=== PATIENT | male | born 2005 | race Two or more races ===

== ENCOUNTER 2024-03-08 21:43 | Emergency (ER) | payer OTHER, SELFPAY ==
--- NOTE | ~2024-03-08 | XR_ITS ---
EXAMINATION: XR HAND, RIGHT CLINICAL INFORMATION: Injury to the right middle finger. COMPARISON: None available. TECHNIQUE: PA, lateral, and oblique views of the right hand. FINDINGS: Subtle nondisplaced fracture along the volar base of the middle phalanx of the third digit. Mild surrounding soft tissue swelling. Otherwise, normal examination. XR/XR hand RT 2V IMPRESSION: Nondisplaced fracture along the volar base of the middle phalanx of the third digit.
[2024-03-08 22:05] VITALS: BP 120/84; PULSE 106; RESP 20; TEMP 37.2; O2SAT 97; BMI 22.6
--- NOTE | 2024-03-08 23:23 | ED.EXTPRO ---
HPI - Extremity Problem General Chief complaint: Extremity Injury, Upper Stated complaint: Fall/Finger inj Time Seen by Provider: 03/08/24 23:16 Source: patient, family (Patient's mother), RN notes reviewed and old records reviewed Mode of arrival: ambulatory Limitations: no limitations History of Present Illness HPI Narrative: 18-year-old male with past medical history significant for cerebral palsy presents for evaluation of right 3rd finger pain. Patient reports he was walking with his crutches when he lost balance and fell forward He tried to use his hand to break his fall He injured his right 3rd finger and now complains of pain, bruising and swelling Denies hitting his head or losing consciousness He has no other complaints or concerns at this time Related Data Home Medications ?Medication ?Instructions ?Recorded ?Confirmed No Known Home Meds 05/14/21 05/14/21 Allergies Allergy/AdvReac Type Severity Reaction Status Date / Time No Known Allergies Allergy Verified 03/08/24 22:09 Review of Systems Constitutional: Constitutional: Denies body ache(s), Denies chills and Denies fever(s) Musculoskeletal: Musculoskeletal: Reports arthralgias and Reports joint swelling PMFSH Past Medical History Medical History (Updated 03/08/24 @ 23:25 by Duke Rubio) Hypothyroidism Cerebral palsy Physical Exam Vital Signs: Vital Signs: Last Vital Signs Temp 98.9 F 03/08/24 22:05 Pulse 106 H 03/08/24 22:05 Resp 20 03/08/24 22:05 BP 120/84 03/08/24 22:05 Pulse Ox 97 03/08/24 22:05 O2 Del Method Room Air 03/08/24 22:05 BMI result Body Mass Index 22.6 Const: General: healthy appearing, comfortable, no acute distress, alert and awake Nutritional Appearance: well nourished Orientation/consciousness: patient oriented x3 HEENT: Head: Yes normocephalic and Yes atraumatic Neck: Neck: Yes full ROM Resp: Effort & Inspection: normal respiratory effort, able to speak in complete sentences and not labored Neuro: General: patient oriented x3 Cranial nerves: Yes Bilaterally intact EOM present Cognition (Neuro): normal cognition Extrem: Other: Patient has mild edema with ecchymosis and tenderness to the right 3rd finger over the PIP joint. The patient has limited range of motion with flexion of the right 3rd finger. No overlying wounds Medical Decision Making Medical Decision Making MDM Narrative: 18-year-old male presents for evaluation of right 3rd finger pain, x-ray shows a small avulsion fracture to the base of the right 3rd middle phalanx. The patient was placed in a finger splint. He was given referral to hand surgery. The patient generally walks with crutches due to his cerebral palsy. He also has a wheelchair at home that he may use while his hand is healing Differential Diagnosis Differential Diagnoses: The differential diagnosis associated with the presentation includes Hand fracture Finger fracture Finger sprain Dislocation Independent Interpretation I performed an independent interpretation of an: Plain X-Ray (Appreciate avulsion fracture of the base of the right 3rd middle phalanx) Radiology Impression Discussion of test interpretation with radiology: I have reviewed the radiologist's reading. Radiologist Impression: IMPRESSION: Nondisplaced fracture along the volar base of the middle phalanx of the third digit. Discharge Plan Discharge Clinical Impression: Fracture of middle phalanx of finger of right hand Patient Disposition: Home, Self-Care Instructions: Finger Fracture (ED) Additional Instructions: You have a small avulsion fracture to the right middle finger Keep the finger splint in place Use ibuprofen/Tylenol for pain Follow-up with hand surgery, Dr. Milady Marie Prescriptions: No Action No Known Home Meds Referrals: Milady Marie MD [Physician] - (Right 3rd finger fracture) Print Language: English
--- OUTSIDE RECORDS SUMMARY | 2024-03-08 23:27 | XMS_ITS | Referral Summary ---
Author Organization 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
--- OUTSIDE RECORDS SUMMARY | 2024-03-08 23:27 | XMS_ITS | Referral Summary ---
Author Organization [facility] Address [address] [place] [phone] Encounter 05/03/23 - 05/03/[address] [address] [facility] [phone] Discharge Disposition: 01 Home (with or w/o IV fusion or DME) Referring Physician: Meliton Joseph DO Allergies, Adverse Reactions, [...]
--- OUTSIDE RECORDS SUMMARY | 2024-03-08 23:27 | XMS_ITS | Referral Summary ---
Author Organization [facility] Address [address] [place] [phone] Care Team Providers Care Shear Scrapman Name Role Phone Sadia Cornell MD Primary Care Physician Encounter FIN Number [id number] Date(s): 05/24/21 - 05/24/[address] [address] [facility] [phone] Discharge Disposition: 01 Home (with or w/o IV fusion or DME) Attending Physician: Marifer Marrufo MD Referring Physician: Lior Jordan MD Allergies, Adverse Reactions, Alerts No Known Allergies Medications No Known Medications Problem List Condition Effective Dates Status Health Status Inform ant Diplegic cerebral palsy(Confirmed) 03 Active Triplegia(Confirmed) 09/05/13 Active Procedures Procedure Date Related Diagnosis Body Site Status Lengthening of gastrocnemius muscle 1 09/23/13 Completed Gastrostomy operation 2 2007 C ompleted 1bialteral rectus to sartorius 2g-tube placed around 1 1/2 yoa and removed around 3 years of age Vital Signs Most recent to oldest [Reference Range]: 1 Height 149 cm (05/24/21 1:31 PM) Height NOT Growth Chart 149 cm (05/24/21 1:31 PM) Converted Height NOT Growth Chart 4.9 ft (05/24/21 1:31 PM) Weight 51.1 kg (05/24/21 1:31 PM) Weight NOT Growth Chart 51.1 kg (05/24/21 1:31 PM) Converted Weight NOT Growth Chart 112.66 lb(s) (05/24/21 1:31 PM) Body Mass Index 23.02 kg/m2 (05/24/21 1:31 PM) Body Mass Index NOT Growth Chart 23 (05/24/21 1:31 PM) Body surface area 1.4543 m2 (05/24/21 1:31 PM) Social History Social History Type Response Smoking Status Never smoker entered on: 12/12/13 Sex Male
--- OUTSIDE RECORDS SUMMARY | 2024-03-08 23:27 | XMS_ITS | Continuity of Care Document ---
Author Name [employer] Organization Interface Problems Problem Status Onset Date Classification Date Reported Comments Source Triplegia Active 09/05/2013 09/16/2023 [facility] Triplegia(<span ID= [id number] >Confirmed</spa n>) Active 09/05/2013 06/09/2021 [facility] Diplegic cerebral palsy Active 2003 09/16/2023 [facility] Diplegic cerebral palsy(<span ID= [id number] >Confirmed</sp an>) Active 2003 06/09/2021 [facility] Medications Medication Details Route Status Patient Instruction s Ordering Provider Order Date Source Allergies, Adverse Reactions, Alerts Substance Category Reaction Severity Reaction type Status Date Reported Comments Source Immunizations Immunization Date Given Site Status Last Updated Comments So urce Results Order Name Results Value Reference Range Date Interpretatio n Comments Source Vital Signs Vital Sign Value Date Comments Source Height NOT Growth Chart 149 cm 05/24/2021 [facility] Converted Height NOT Growth Chart 4.9 [ft_i] 05/24/2021 [facility] ital Weight NOT Growth Chart 51.1 kg 05/24/2021 [facility] Body surface area 1.4543 m2 05/24/2021 [facility] Converted Weight NOT Growth Chart 112.66 [lb_ap] 05/24/2021 [facility] ital Body Mass Index NOT Growth Chart 23 05/24/2021 [facility] ital Height in cms. 149 cm 05/24/2021 [facility] Weight in kgs 51.1 kg 05/24/2021 [facility] Body Mass Index 23.02 kg/m2 05/24/2021 [facility] Encounters Location Location Details Encounter Type Encounter Number Reason For Visit Attending Provider ADM Date DC Date Status Source [facility] Outpatient [id number] Marifer Marrufo MD 05/24 [facility] Meliton Joseph DO 09/14 [facility] Procedures Procedure Code Date Perfomer Comments Source Lengthening of gastrocnemius muscle<sup>1</sup> [id number] 09/23/[address] [facility] Gastrostomy operation<sup>2</sup> [id number] 11/27/2007 g-tube janelle danilo around 1 1/2 yoa and removed around 3 years of age [facility]
--- OUTSIDE RECORDS SUMMARY | 2024-03-08 23:27 | XMS_ITS | Referral Summary ---
Author Organization [facility] Address [address] [place] [phone] Care Team Providers Care Ginner Name Role Phone Sadia Cornell MD Primary Care Physician Encounter 09/14/23 - 09/14/[address] [address] [facility] [phone] Discharge Disposition: 01 Home (with or w/o [...]
--- OUTSIDE RECORDS SUMMARY | 2024-03-08 23:27 | XMS_ITS | Referral Summary ---
Author Organization [facility] Address [address] [place] [phone] Care Team Providers Care Heating Operators Engineer Name Role Phone Sadia Cornell MD Primary Care Physician Encounter FIN Number [id number] Date(s): 05/24/21 - 05/24/[address] [address] [facility] [phone] Discharge Disposition: 01 Home (with or w/o [...]
--- OUTSIDE RECORDS SUMMARY | 2024-03-08 23:27 | XMS_ITS | Referral Summary ---
Author Organization [facility] Address [address] [place] [phone] Encounter 05/03/23 - 05/03/[address] [address] [facility] [phone] Discharge Disposition: 01 Home (with or w/o [...]
--- OUTSIDE RECORDS SUMMARY | 2024-03-08 23:27 | XMS_ITS | Referral Summary ---
Author Organization [facility] Address [address] [place] [phone] Encounter 03/15/23 - 03/15/[address] [address] [facility] [phone] Discharge Disposition: 01 Home (with or w/o [...]
--- OUTSIDE RECORDS SUMMARY | 2024-03-08 23:27 | XMS_ITS | Referral Summary ---
Author Organization [facility] Address [address] [place] [phone] Encounter 03/15/23 - 03/15/[address] [address] [facility] [phone] Discharge Disposition: 01 Home (with or w/o [...]
--- OUTSIDE RECORDS SUMMARY | 2024-03-08 23:27 | XMS_ITS | Referral Summary ---
Author Organization [facility] Address [address] [place] [phone] Encounter 03/15/23 - 03/15/[address] [address] [facility] [[email or web address] [phone] Discharge Disposition: 01 Home (with or w/o [...]
--- OUTSIDE RECORDS SUMMARY | 2024-03-08 23:27 | XMS_ITS | Referral Summary ---
Author Organization [facility] Address [address] [place] [phone] Care Team Providers Care Sewer And Drain Technician Name Role Phone Sadia Cornell MD Primary Care Physician Encounter 09/14/23 - 09/14/[address] [address] [facility] [phone] Discharge Disposition: 01 Home (with or w/o [...]
--- OUTSIDE RECORDS SUMMARY | 2024-03-08 23:27 | XMS_ITS | Referral Summary ---
Author Organization [facility] Address [address] [place] [phone] Care Team Providers Care Edge Drummer Name Role Phone Sadia Cornell MD Primary Care Physician [phone] Encounter FIN Number [id number] Date(s): 05/24/21 - 05/24/[address] [address] [facility] [phone] Discharge Disposition: 01 Home (with or w/o [...]
--- OUTSIDE RECORDS SUMMARY | 2024-03-08 23:27 | XMS_ITS | Referral Summary ---
Author Organization [facility] Address [address] [place] [phone] Care Team Providers Care Machine Edge Bander Name Role Phone Sadia Cornell MD Primary Care Physician Encounter FIN Number [id number] Date(s): 05/24/21 - 05/24/[address] [address] [facility] [phone] Discharge Disposition: 01 Home (with or w/o [...]
[2024-03-08 23:55] VITALS: BP 118/84; PULSE 101; RESP 18; TEMP 37; O2SAT 97
== END 2024-03-08 23:56 | disposition home or self-care (01) ==
PROVIDERS: Emergency Provider Emergency Medicine
DX: S62.652A Nondisplaced fracture of middle phalanx of right middle finger, initial encounter for closed fracture (principal); G80.9 Cerebral palsy, unspecified; W18.30XA Fall on same level, unspecified, initial encounter; Y93.01 Activity, walking, marching and hiking; Y92.9 Unspecified place or not applicable; Y99.9 Unspecified external cause status
CPT/HCPCS: 29130; 73120; 99282; 99283

== ENCOUNTER 2024-03-20 08:35 | Outpatient (AMB) | payer OTHER, SELFPAY ==
[2024-03-20 08:48] VITALS: BMI 22.6
--- NOTE | 2024-03-20 08:48 | A.OFFVIS_ITS ---
Vital Signs 03/20/24 08:48 Height 4 ft 11 in Weight 112 lb BMI 22.6 Intake Visit Reasons: FC- RT hand 3rd digit fracture, DOI 03/08/24 Intake Note: Srinivasa a 18 year old left hand dominant male who presents today for an ER follow up of MF fracture, DOI 03/08/24. Patient reports he was walking with his crutches when he lost balance and fell forward using his hands to break his fall. He presented to [facility] where xrays were taken and placed in a finger splint. Currently he states no pain or discomfort. Hx of cerebral palsy that he generally uses crutches and a wheel chair as needed. Allergies No Known Allergies Allergy (Verified 03/20/24 08:48) HPI HPI FC- RT hand 3rd digit fracture, DOI 03/08/24: Details: 18-year-old left hand dominant male who presents to the office today for an ER follow-up of right middle finger injury, 03/08/24. He reports he was walking with his crutches when he lost balance and fell forward using his hands to break his fall. He was seen at ED where x-rays were performed and he was placed in a finger splint. He currently states he has no pain or discomfort in his finger however he has difficulty to bend his finger. He has a history of cerebral palsy and he generally uses crutches and wheelchair as needed. [facility] Medical History (Updated 03/20/24 @ 09:30 by Linn Lopez PA-C) Hypothyroidism Cerebral palsy Surgical History (Updated 03/20/24 @ 09:08 by LANRE Hayes) History of surgery on lower extremity Social History (Updated 03/20/24 @ 09:09 by LANRE Hayes) Patient Tobacco Use Status: Never used Tobacco Current occupation: left hand dominant Review of Systems Const All systems reviewed & are unremarkable except as noted in HPI and below Physical Exam Vital Signs: BMI result Body Mass Index 22.6 Const General: cooperative, healthy appearing, comfortable, no acute distress, well developed and alert Orientation/consciousness: patient oriented x3 HEENT Head: Yes normal to inspection, Yes normocephalic and Yes atraumatic Eyes General: appearance normal, both eyes and all related structures Resp Effort & Inspection: normal respiratory effort and able to speak in complete sentences Cardio Rate: regular rate Peripheral pulses: Peripheral pulses 2+ throughout GI Palpation (GI): Soft to palpation Skin Lesions: no lesions Rashes: no rashes Neuro General: patient oriented x3 Extrem Other: Right middle finger: Normal to inspection. He has mild discomfort with palpation along the radial side of the PIP joint. No pain with varus or valgus stress testing. No laxity. Full ROM with sensation intact. Office Procedures Fracture Care Fracture Billing Code: Fracture Billing Code Results Reviewed Results Reviewed: X-rays of the right hand obtained in the office today shows an evulsion fragment along the radial side of the PIP joint. Assessment & Plan Assessment & Plan (1) Avulsion fracture of middle phalanx of finger: Code(s): S62.629A - Displaced fracture of middle phalanx of unspecified finger, initial encounter for closed fracture Category: Medical Qualifiers: Encounter type: initial encounter Fracture type: closed Qualified Code(s): S62.629A - Displaced fracture of middle phalanx of unspecified finger, initial encounter for closed fracture Plan Case was discussed with patient and his mother at the visit today. We showed them how to amrita tape the ring finger to middle finger to help stabilize the PIP joint of the finger. I did stress the importance of ROM of hand to prevent stiffness. He will see me back in 3 weeks with new x-rays for reexamination, sooner if he has any questions or concerns. Orders: Orders XR hand RT min 3V Today M79.641 - Pain in right hand Patient Instructions: Scribed for Linn Lopez PA-C, by Nathaniel Shaw medical supervisor, on 03/20/2024 at 9:00 AM EST. ILinn PA-C, have personally reviewed and agree with the information entered by the scribe. Coding Level of Care Code New Pt Level 3 (26781) Diagnoses Closed avulsion fracture of middle phalanx of finger, initial encounter S62.629A Encounter type: initial encounter Fracture type: closed CPT Codes Fracture Care - Fracture Billing Code: Fracture Billing Code ([id number])
== END 2024-03-20 09:25 | disposition home or self-care (01) ==
PROVIDERS: Visit Provider Physician Assistant
DX: S62.624A Displaced fracture of middle phalanx of right ring finger, initial encounter for closed fracture (principal)
CPT/HCPCS: 99203

== ENCOUNTER 2024-03-20 10:10 | Outpatient (REF) | payer OTHER, SELFPAY ==
--- NOTE | ~2024-03-20 | XR_ITS ---
EXAMINATION: XR HAND, RIGHT CLINICAL INFORMATION: Pain in right hand, splint off middle finger. COMPARISON: 03/08/2024. TECHNIQUE: PA, lateral, and oblique views of the right hand. FINDINGS: Bone mineralization is normal. There is a mildly displaced fracture through the volar base of the middle phalanx of the 3rd digit with adjacent soft tissue swelling. Fracture lines are slightly less distinct suggesting some mild interval bridging callus formation. XR/XR hand RT min 3V IMPRESSION: Mildly displaced fracture through the volar base of the middle phalanx of the 3rd digit with adjacent soft tissue swelling. Fracture lines are slightly less distinct suggesting some mild interval bridging callus formation.
== END 2024-03-20 10:11 | disposition home or self-care (01) ==
LOC: HO.HOSX 10:10
PROVIDERS: Visit Provider Physician Assistant
DX: S62.621A Displaced fracture of middle phalanx of left index finger, initial encounter for closed fracture (principal)
CPT/HCPCS: 73130; 99202

== ENCOUNTER 2024-04-10 09:10 | Outpatient (REF) | payer OTHER, SELFPAY ==
--- NOTE | ~2024-04-10 | XR_ITS ---
EXAMINATION: XR HAND, RIGHT CLINICAL INFORMATION: Painful right hand COMPARISON: Prior x-rays of the right hand most recent February 2024 TECHNIQUE: PA, lateral, and oblique views of the right hand. FINDINGS: Minimally displaced fracture along the volar radial aspect of the base of the middle phalanx unchanged. Remaining bones joints and soft tissues are unremarkable. XR/XR hand RT min 3V IMPRESSION: Minimally displaced fracture along the volar radial aspect of the base of the middle phalanx unchanged.
== END 2024-04-10 09:11 | disposition home or self-care (01) ==
LOC: HO.HOSX 09:10
PROVIDERS: Visit Provider Physician Assistant
DX: M79.641 Pain in right hand (principal); S62.622D Displaced fracture of middle phalanx of right middle finger, subsequent encounter for fracture with routine healing; X58.XXXD Exposure to other specified factors, subsequent encounter
CPT/HCPCS: 73130; 99212

== ENCOUNTER 2024-04-10 09:12 | Outpatient (AMB) | payer OTHER, SELFPAY ==
--- NOTE | 2024-04-10 09:24 | A.OFFVIS_ITS ---
Intake Visit Reasons: ov-fu Rt miffle finger RCL sprain w xray Intake Note: Srinivasa a 18 year old left hand dominant male who presents today for a follow up of right hand 3rd digit fracture, DOI 03/08/24. Xrays updated. Patient reports he is doing well, states he has no pain or discomfort. Allergies No Known Allergies Allergy (Verified 04/10/24 09:27) HPI HPI ov-fu Rt miffle finger RCL sprain w xray: Details: 18-year-old left hand dominant male who returns to the office today for a follow-up of right middle finger fracture, 03/08/24. He states he has no pain or discomfort and is doing well overall. He has no concerns today. [facility] Medical History (Updated 03/20/24 @ 09:30 by Linn Lopez PA-C) Hypothyroidism Cerebral palsy Surgical History History of surgery on lower extremity Social History Patient Tobacco Use Status: Never used Tobacco Current occupation: left hand dominant Review of Systems Const All systems reviewed & are unremarkable except as noted in HPI and below Physical Exam Const General: cooperative, healthy appearing, comfortable, no acute distress, well developed and alert Orientation/consciousness: patient oriented x3 HEENT Head: Yes normal to inspection, Yes normocephalic and Yes atraumatic Eyes General: appearance normal, both eyes and all related structures Resp Effort & Inspection: normal respiratory effort and able to speak in complete sentences Cardio Rate: regular rate Peripheral pulses: Peripheral pulses 2+ throughout GI Palpation (GI): Soft to palpation Skin Lesions: no lesions Rashes: no rashes Neuro General: patient oriented x3 Extrem Other: Right middle finger: Normal to inspection. He has no discomfort with palpation along the radial side of the PIP joint. No pain with varus or valgus stress testing. No laxity. Full ROM with sensation intact. Results Reviewed Results Reviewed: X-rays of the right hand obtained in the office today shows an avulsion fragment along the radial side of the PIP joint with interval healing. Assessment & Plan Assessment & Plan (1) Avulsion fracture of middle phalanx of finger: Code(s): S62.629A - Displaced fracture of middle phalanx of unspecified finger, initial encounter for closed fracture Category: Medical Qualifiers: Encounter type: initial encounter Fracture type: closed Qualified Code(s): S62.629A - Displaced fracture of middle phalanx of unspecified finger, initial encounter for closed fracture Plan He will increase activity as tolerated continuing to use caution with any type of contact or impact activities. He will not return to office however if he has any pain or concerns, he will contact the office, otherwise as needed. Orders: Orders XR hand RT min 3V 04/10/24 M79.641 - Pain in right hand Patient Instructions: Scribed for Linn Lopez PA-C, by Nathaniel Shaw medical doctor nuclear medicine, on 04/10/2024 at 9:30 AM EST.? I, Linn Lopez PA-C, have personally reviewed and agree with the information entered by the scribe. Coding Level of Care Code Global (70737) Diagnoses Closed avulsion fracture of middle phalanx of finger, initial encounter S62.629A Encounter type: initial encounter Fracture type: closed
== END 2024-04-10 10:14 | disposition home or self-care (01) ==
PROVIDERS: Visit Provider Physician Assistant
DX: S62.622A Displaced fracture of middle phalanx of right middle finger, initial encounter for closed fracture (principal)
CPT/HCPCS: 99213

== ENCOUNTER 2024-08-15 08:07 | Outpatient (REF) | payer OTHER, SELFPAY ==
[2024-08-15 09:13] LABS: MANUAL DIFF FLAG NO
[2024-08-15 09:23] LABS: Basophils Percent Auto 0.6 % (0-2); Eosinophils Absolute Auto 0.1 X10*3/uL (0.0-0.4); Eosinophils Percent Auto 1.2 % (0-4); Hematocrit 44.4 % (42.0-52.0); Hemoglobin 14.7 g/dl (14.0-18.0); Imm Gran Abs Auto 0.01 X10*3/uL (0.00-0.03); Imm Gran Pct Auto 0.2 % (0.0-0.4); Lymphocytes Absolute Auto 2.1 X10*3/uL (1.2-4.9); Lymphocytes Percent Auto 41.4 % (20-40); Mean Corpuscular HGB Conc 33.1 g/dl (31.0-36.0); Mean Corpuscular Hemoglobin 27.2 pg (27.0-33.0); Mean Corpuscular Volume 82.1 fL (80.0-98.0); Mean Platelet Volume 10.7 fL (9.4-12.4); Monocytes Absolute Auto 0.4 X10*3/uL (0.1-1.2); Monocytes Percent Auto 8.2 % (2-11); Neutrophils Absolute Auto 2.5 x10*3/uL (2.0-8.3); Neutrophils Percent Auto 48.4 % (45-73); Platelet Count 265 X10*3/uL (160-400); Red Blood Count 5.41 X10*6/uL (4.60-5.80); Red Cell Distribution Width 13.7 % (11.0-16.0); White Blood Count 5.2 X10*3/uL (4.8-10.8)
[2024-08-15 10:21] LABS: Alanine Aminotransferase 10 U/L (0-40); Albumin Level 5.1 g/dL (3.5-5.0); Alkaline Phosphatase 63 U/L (39-117); Anion Gap 13 (12-20); Aspartate Amino Transferase 15 U/L (5-37); Bilirubin Total 0.7 mg/dL (0.0-1.0); Blood Urea Nitrogen 7 mg/dL (9-16); Calcium 9.6 mg/dL (8.4-10.2); Carbon Dioxide 29 mmol/L (22-29); Chloride 104 mmol/L (96-108); Estimated Glomerular Filt Rate > 60; Glucose Random 79 mg/dL (60-115); Potassium 3.9 mmol/L (3.3-5.1); Sodium 142 mmol/L (135-145); Total Protein 8.3 g/dL (6.5-8.0)
[2024-08-15 10:43] LABS: Free T4 (Free Thyroxine) 0.97 ng/dL (0.71-1.85); TSH reflex Free T4 1.35 uIU/mL (0.32-4.0)
[2024-08-15 10:49] LABS: Folate 14.2 ng/mL (> or = 4.0); Vitamin B12 316 pg/mL (200-900)
[2024-08-20 15:48] LABS: Vitamin D 25-OH, D2 <4 ng/mL; Vitamin D 25-OH, D3 13 ng/mL; Vitamin D 25-OH, Total 13 ng/mL (30-100)
== END 2024-08-15 08:08 | disposition home or self-care (01) ==
LOC: HO.LAB 08:07
DX: Z00.00 Encounter for general adult medical examination without abnormal findings (principal); G80.9 Cerebral palsy, unspecified
CPT/HCPCS: 36415; 80053; 82306; 82607; 82746; 84439; 84443; 85025; 96127; 99385

== ENCOUNTER 2024-08-15 08:07 | Outpatient (AMB) | payer OTHER, SELFPAY ==
[2024-08-15 08:22] VITALS: BP 98/58; PULSE 113; O2SAT 99; BMI 23.3
--- NOTE | 2024-08-15 08:22 | MHC.PC.OV ---
Vital Signs 08/15/24 08:22 Height 4 ft 11 in Weight 115 lb 8.356 oz BMI 23.3 BP 98/58 L Blood Pressure Location Lt brachial Position Sitting Pulse 113 H Pulse Source Pulse Oximeter Pulse Oximetry (%) 99 Oxygen Delivery Method Room Air Intake Visit Reasons: annual exam / establish care Allergies No Known Allergies Allergy (Verified 08/15/24 08:34) Medication List - Last Reconciled 08/15/24 by Yuli Nguyễn PA-C No Known Home Meds Tobacco use date assessed: 08/15/24 Dental Screening Dental Screen Date: 08/15/24 Did you have a dental visit in the last 12 months?: No Did you have a dental problem in the last 6 months where you did not have access to dental care?: No Was dental information given to patient?: No HPI annual exam / establish care HPI Details 19-year-old male with past medical history of 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 Patient presents today with his mother. He was previously seen by [facility] pediatrics and transferred to [facility] for management of cerebral palsy with triplegia. Patient primarily we will use crutches for short distance and will use wheelchair for long distances. No acute concerns today. [facility] Medical History Hypothyroidism Cerebral palsy Surgical History History of surgery on lower extremity Family History Father No problems noted. Mother No problems noted. Brother No problems noted. Brother No problems noted. Social History Housing: Other (At home with parents) Patient Tobacco Use Status: Never used Tobacco Tobacco use type: Cigarette e-Cigarette/Vaping Use: Never Used Second Hand Smoke Exposure: No service: No Current occupational status: disabled Current occupation: left hand dominant Current occupational exposures/hazards: No Cognitive needs: No Hearing needs: No Vision needs: Yes Questionnaire PHQ-9 Over the last 2 weeks, how often have you been bothered by any of the following problems? 1. Little interest or pleasure in doing things: not at all 2. Feeling down, depressed, or hopeless: not at all 3. Trouble falling or staying asleep, or sleeping too much: not at all 4. Feeling tired or having little energy: not at all 5. Poor appetite or overeating: not at all 6. Feeling bad about yourself - or that you are a failure or have let yourself or your family down: not at all 7. Trouble concentrating on things, such as reading the newspaper or watching television: not at all 8. Moving or speaking so slowly that other people could have noticed. Or the opposite - being so fidgety or restless that you have been moving around a lot more than usual: not at all 9. Thoughts that you would be better off or of hurting yourself in some way: not at all Total score: 0 Depression Screening Interpretation: Negative Depression Screening Done: Yes 29578 - PHQ-9 Billing: Yes Source: Developed by Drs. Lior Mitchell, Sarai Zambrano, Wilver Zavala and colleagues, with an educational josé miguel from [employer]. Thrive Questionnaire Date Thrive assessed: 08/15/24 I am a: Patient What is your living situation today?: I have a steady place to live Within the past 12 months, did the food you bought not last and you didn't have the money to get more?: I choose not to answer this question Within the past 12 months, did you worry whether your food would run out before you got money to buy more?: I choose not to answer this question Do you have trouble paying for medicines?: I choose not to answer this question Do you have trouble getting transportation to medical appointments?: Yes Do you have trouble paying your heating and electricity bill?: I choose not to answer this question Do you have trouble taking care of your child, family member or friend?: No Do you have trouble with day-to-day activities such as bathing, preparing meals, shopping, managing finances, etc.?: No Are you currently unemployed and looking for a job?: Yes Are you interested in more education?: I choose not to answer this question Please select the resources that you would like help with: None Currently or been in a relationship where the following occur: No concerns reported THRIVE Score: 1 AUDIT C Alcohol Use Questionnaire (AUDIT-C) 1. How often do you have a drink containing alcohol?: Never 3. How often do you have six or more drinks on one occasion?: Never Total Score: 0 HAMILTON-7 AMB Questionnaire HAMILTON-7 Date HAMILTON - 7 assessed: 08/15/24 Feeling nervous, anxious, or on edge: 0 = Not at all Not being able to stop or control worryin = Not at all Worrying too much about different things: 0 = Not at all Trouble relaxin = Not at all Being so restless that it is hard to sit still: 0 = Not at all Becoming easily annoyed or irritable: 0 = Not at all Feeling afraid as if something awful might happen: 0 = Not at all Total HAMILTON-7 score (0-4 normal; 5-9 mild; 10-14 moderate; 15-21 severe): 0 Source: Developed by Drs. Lior Mitchell, Sarai Zambrano, Wilver Zavala and colleagues, with an educational josé miguel from [employer]. Review of Systems Const Denies body aches, Denies fatigue, Denies fever(s), Denies frequent falls, Denies headache(s) and Denies weakness Eyes Reports no additional complaints, Denies change in vision and Reports requires corrective lenses ENT Denies dysphagia, Denies dizziness, Denies facial pain, Denies headache(s), Denies nasal congestion and Denies odynophagia Card Denies chest pain, Denies syncope, Denies irregular heart rhythm, Denies leg edema, Denies lightheadedness and Denies dyspnea Resp Denies cough and Denies dyspnea GI Denies constipation, Denies dysphagia, Denies dyspepsia, Denies diarrhea, Denies nausea, Denies odynophagia and Denies vomiting Denies dysuria, Denies urinary frequency, Denies urinary hesitancy and Denies urinary urgency Musc Denies back pain and Denies myalgias Skin/Breast Reports system reviewed and no additional complaints, except as documented Neuro Denies dizziness, Denies syncope, Denies frequent falls, Denies headache(s) and Denies weakness Psych Reports no additional complaints Endo Denies fatigue Physical exam (Primary Care) Vital Signs: Last Vital Signs Pulse 113 H 08/15/24 08:22 BP 98/58 L 08/15/24 08:22 Pulse Ox 99 08/15/24 08:22 Oxygen Delivery Method Room Air 08/15/24 08:22 BMI result Body Mass Index 23.3 Tobacco/Smoking Status: Tobacco use Status Tobacco use date assessed 08/15/24 08/15/24 08:29 Patient Tobacco Use Status Never used Tobacco 08/15/24 08:29 Tobacco use type Cigarette 08/15/24 08:29 e-Cigarette/Vaping Use Never Used 08/15/24 08:29 PHQ-9: PHQ-9 Score PHQ-9: Total score 0 08/15/24 09:02 Depression Screening Interpretation: Negative Thrive Assessment: Date of Thrive Assessment Date Thrive assessed 08/15/24 08/15/24 08:29 Currently or been in a relationship where the following occur: No concerns reported Const General: cooperative, healthy appearing, comfortable and no acute distress Orientation/consciousness: patient oriented x3 HENMT Head: Yes normocephalic Ears: hearing grossly normal bilaterally, external ears normal, TM's normal bilaterally and EAC's normal General nose exam: Normal external nose present Face and sinus: Yes normal facial exam and Yes sinuses nontender Mouth: Normal oral and palatal mucosa present and tongue normal Throat: Yes posterior oropharynx normal Eyes General: appearance normal, both eyes and all related structures Conjunctivae: conjunctivae normal Pupils: Equal, round and reactive pupils present EOM: EOMs intact bilaterally and No Nystagmus present Neck Neck: Yes normal visual inspection, Yes full ROM and Yes no lymphadenopathy Chest Chest palpation & inspection: normal inspection of the chest Resp Effort & Inspection: normal respiratory effort Auscultation: clear to auscultation bilaterally, no crackles, no rales, no rhonchi, no wheezes and breath sounds present Cardio Rate: regular rate Rhythm: regular rhythm Peripheral pulses: radial pulses present and dorsalis pedis present GI Inspection: Yes normal to inspection and No Abdominal wall edema Palpation (GI): Soft to palpation, not firm and nontender Auscultation: normal bowel sounds Rectal Exam - Male: Yes deferred General: Yes no CVA tenderness Back/Spine/Pelvis Back: no CVA tenderness Skin General skin exam: no rashes or lesions noted Neuro General: patient oriented x3 Cranial nerves: Yes Equal, round and reactive pupils present, Yes Midline tongue present, Yes Ability to bilaterally elevate shoulders present and No Nystagmus present Gait exam (Neuro): Assisted gait required Gait assisted method: crutches Extrem General: Yes normal to inspection, Yes full ROM, No no pedal edema and No edema Psych Speech and movement: Normal speech and movement present Affect: normal affect Insight: Good insight present (Psych) Judgement: Good judgement present (Psych) Assessment and Plan Assessment & Plan (1) Cerebral palsy: Comment: s/p muscle nerve transplant 2009-followed by [facility]-has crutches and wheelchair. As of 04/2021 uses crutches almost exclusively. Code(s): G80.9 - Cerebral palsy, unspecified Plan: Regarding mobility he primarily uses crutches for short distances and wheelchair for long distances. Previously followed by [facility] but dismissed due to age. Referral placed for Neurology provider at this time. (2) Annual physical exam: Code(s): Z00.00 - Encounter for general adult medical examination without abnormal findings Plan: Patient is up-to-date on all recommended routine screenings and vaccinations for his age. Updated blood work ordered today and we will follow up in 1 year or sooner if new problems arise. Plan This note was constructed using voice recognition software. While every effort has been made to ensure accuracy and urban renewal manager, still areas may have been included sometimes these areas may affect the content or meeting of the given symptoms. Total time spent caring for the patient today was 30 minutes. This includes time spent before the visit reviewing the chart, time spent during the visit, and time spent after the visit and documentation. Orders: Orders Complete Blood Count Auto Diff Today Z00.00 - Encounter for general adult medical examination without abnormal findings Free T4 (Free Thyroxine) Today Z00.00 - Encounter for general adult medical examination without abnormal findings TSH reflex Free T4 Today Z00.00 - Encounter for general adult medical examination without abnormal findings Comprehensive Met. Panel Today Z00.00 - Encounter for general adult medical examination without abnormal findings Vitamin B12 and Folate Today Z00.00 - Encounter for general adult medical examination without abnormal findings Vitamin D 25-OH (D2 and D3) Today Z00.00 - Encounter for general adult medical examination without abnormal findings Referrals Neurology Referral G80.9 - Cerebral palsy, unspecified Coding Level of Care Code New Pt Prev Care 18-39yr([id number] Diagnoses Cerebral palsy G80.9 Annual physical exam Z00.00
== END 2024-08-15 08:46 | disposition home or self-care (01) ==
DX: G80.9 Cerebral palsy, unspecified (principal); Z00.00 Encounter for general adult medical examination without abnormal findings

== ENCOUNTER 2025-08-22 08:58 | Outpatient (AMB) | payer OTHER, SELFPAY ==
--- NOTE | 2025-08-22 09:01 | A.OFFPC_ITS ---
Vital Signs 08/22/25 09:02 08/22/25 09:21 Height 4 ft 11 in Weight 117 lb 1.047 oz BMI 23.6 BP 110/66 Blood Pressure Location Lt brachial Position Sitting Pulse 121 H 90 Pulse Source Pulse Oximeter Auscultation Temp 97.3 F Temp Source Temporal Artery Scan Pulse Oximetry (%) 96 Oxygen Delivery Method Room Air Intake Visit Reasons: Annual Exam Accompanied by: Mother Allergies No Known Allergies Allergy (Verified 08/22/25 09:14) Medication List - Last Reconciled 08/22/25 by Yuli Nguyễn PA-C cholecalciferol (vitamin D3) (Vitamin D3) 25 mcg PO DAILY Tobacco use date assessed: 08/22/25 Dental Screening Dental Screen Date: 08/22/25 Did you have a dental visit in the last 12 months?: No Did you have a dental problem in the last 6 months where you did not have access to dental care?: No Was dental information given to patient?: Patient has dentist HPI Annual Exam HPI Details 20-year-old male with past medical histo ry of cerebral palsy last seen 07/2024 coming in for annual exam. In review of the notes, patient was seen by Neurology 09/2024 follow up in 1 year. Presenting for an annual wellness visit. Vitamin D deficiency was identified in the previous year's lab results, and supplementation was advised. The patient experienced a finger fracture from a fall, which has healed completely. No new allergies or medications were noted, and the patient denies tobacco and alcohol use. The patient continues to see a neurologist annually, with no new neurological issues reported eye doctor: referral placed today vaccines: [facility] Medical History Hypothyroidism Cerebral palsy Surgical History History of surgery on lower extremity Family History Father No problems noted. Mother No problems noted. Brother No problems noted. Brother No problems noted. Social History Housing: Other (At home with parents) Patient Tobacco Use Status: Never used Tobacco Tobacco use type: Cigarette e-Cigarette/Vaping Use: Never Used Second Hand Smoke Exposure: No service: No Current occupational status: disabled Current occupation: left hand dominant Current occupational exposures/hazards: No Cognitive needs: No Hearing needs: No Vision needs: Yes Questionnaire PHQ-9 Over the last 2 weeks, how often have you been bothered by any of the following problems? 1. Little interest or pleasure in doing things: not at all 2. Feeling down, depressed, or hopeless: not at all 3. Trouble falling or staying asleep, or sleeping too much: not at all 4. Feeling tired or having little energy: not at all 5. Poor appetite or overeating: not at all 6. Feeling bad about yourself - or that you are a failure or have let yourself or your family down: not at all 7. Trouble concentrating on things, such as reading the newspaper or watching television: not at all 8. Moving or speaking so slowly that other people could have noticed. Or the opposite - being so fidgety or restless that you have been moving around a lot m ore than usual: not at all 9. Thoughts that you would be better off or of hurting yourself in some way: not at all Total score: 0 Depression Screening Interpretation: Negative Depression Screening Done: Yes 28474 - PHQ-9 Billing: Yes Source: Developed by Drs. Lior Mitchell, Sarai Zambrano, Wilver Zavala and colleagues, with an educational josé miguel from [employer]. Thrive Questionnaire Date Thrive assessed: 08/22/25 I am a: Patient What is your living situation today?: I have a steady place to live Within the past 12 months, did the food you bought not last and you didn't have the money to get more?: Sometimes True Within the past 12 months, did you worry whether your food would run out before you got money to buy more?: Sometimes True Do you have trouble paying for medicines?: No Do you have trouble getting transportation to medical appointments?: No Do you have trouble paying your heating and electricity bill?: No Do you have trouble taking care of your child, family member or friend?: No Do you have trouble with day-to-day activities such as bathing, preparing meals, shopping, managing finances, etc.?: No Are you currently unemployed and looking for a job?: I choose not to answer this question Are you interested in more education?: No Please select the resources that you would like help with: None Currently or been in a relationship where the following occur: No concerns reported THRIVE Score: 2 AUDIT C Alcohol Use Questionnaire (AUDIT-C) 1. How often do you have a drink containing alcohol?: Never 3. How often do you have six or more drinks on one occasion?: Never Total Score: 0 HAMILTON-7 AMB Questionnaire HAMILTON-7 Date HAMILTON - 7 assessed: 08/22/25 Feeling nervous, anxious, or on edge: 0 = Not at all Not being able to stop or control worryin = Not at all Worrying too much about different things: 0 = Not at all Trouble relaxin = Not at all Being so restless that it is hard to sit still: 0 = Not at all Becoming easily annoyed or irritable: 0 = Not at all Feeling afraid as if something awful might happen: 0 = Not at all Total HAMILTON-7 score (0-4 normal; 5-9 mild; 10-14 moderate; 15-21 severe): 0 Source: Developed by Drs. Lior Mitchell, Sarai Zambrano, Wilver Zavala and colleagues, with an educational josé miguel from [employer]. HAMILTON-7 Assessment Billing HAMILTON-7 Assessment Tool: HAMILTON-7 Assessment 25677 Review of Systems Const Denies body aches, Denies fatigue, Denies fever(s), Denies frequent falls, Denies headache(s) and Denies weakness Eyes Reports no additional complaints and Denies change in vision ENT Denies dysphagia, Denies dizziness, Denies facial pain, Denies headache(s) and Denies odynophagia Card Denies chest pain, Denies syncope, Denies irregular heart rhythm, Denies leg edema, Denies lightheadedness and Denies dyspnea Resp Denies cough and Denies dyspnea GI Denies constipation, Denies dysphagia, Denies dyspepsia, Denies diarrhea, Denies nausea, Denies odynophagia and Denies vomiting Denies dysuria, Denies urinary frequency, Denies urinary hesitancy and Denies urinary urgency Musc Denies back pain and Denies myalgias Skin/Breast Reports system reviewed and no additional complaints, except as documented Neuro Denies dizziness, Denies syncope, Denies frequent falls, Denies headache(s) and Denies weakness Psych Reports no additional complaints Endo Denies fatigue Physical exam (Primary Care) Vital Signs: Last Vital Signs Temp 97.3 F 08/22/25 09:02 Pulse 90 08/22/25 09:21 BP 110/66 08/22/25 09:02 Pulse Ox 96 08/22/25 09:02 Oxygen Delivery Method Room Air 08/22/25 09:02 BMI result Body Mass Index 23.6 Tobacco/Smoking Status: Tobacco use Status Tobacco use date assessed 08/22/25 08/22/25 09:05 Patient Tobacco Use Status Never used Tobacco 08/22/25 09:05 Tobacco use type Cigarette 08/22/25 09:05 e-Cigarette/Vaping Use Never Used 08/22/25 09:05 PHQ-9: PHQ-9 Score PHQ-9: Total score 0 08/22/25 09:14 Depression Screening Interpretation: Negative Thrive Assessment: Date of Thrive Assessment Date Thrive assessed 08/22/25 08/22/25 09:05 Currently or been in a relationship where the following occur: No concerns reported Const General: cooperative, healthy appearing, comfortable and no acute distress Orientation/consciousness: patient oriented x3 HENMT Head: Yes normocephalic Ears: hearing grossly normal bilaterally, external ears normal, TM's normal bilaterally and EAC's normal General nose exam: Normal external nose present Face and sinus: Yes normal facial exam and Yes sinuses nontender Mouth: Normal oral and palatal mucosa present and tongue normal Throat: Yes posterior oropharynx normal Eyes General: appearance normal, both eyes and all related structures Conjunctivae: conjunctivae normal Pupils: Equal, round and reactive pupils present EOM: EOMs intact bilaterally and No Nystagmus present Neck Neck: Yes normal visual inspection, Yes full ROM and Yes no lymphadenopathy Chest Chest palpation & inspection: normal inspection of the chest Resp Effort & Inspection: normal respiratory effort Auscultation: clear to auscultation bilaterally, no crackles, no rales, no rhonchi, no wheezes and breath sounds present Cardio Rate: regular rate Rhythm: regular rhythm Peripheral pulses: radial pulses present and dorsalis pedis present GI Inspection: Yes normal to inspection and No Abdominal wall edema Palpation (GI): Soft to palpation, not firm and nontender Auscultation: normal bowel sounds Rectal Exam - Male: Yes deferred General: Yes no CVA tenderness Back/Spine/Pelvis Back: no CVA tenderness Skin General skin exam: no rashes or lesions noted Neuro General: patient oriented x3 Cranial nerves: Yes Equal, round and reactive pupils present, Yes Midline tongue present, Yes Ability to bilaterally elevate shoulders present and No Nystagmus present Gait exam (Neuro): Assistive device used (forearm crutches ) Extrem General: Yes normal to inspection, Yes full ROM, No no pedal edema and No edema Psych Speech and movement: Normal speech and movement present Affect: normal affect Insight: Good insight present (Psych) Judgement: Good judgement present (Psych) Coding Level of Care Code Est Pt Prev Care 18-39y([id number]) Diagnoses Annual physical exam Z00.00 Cerebral palsy G80.9 Vitamin D deficiency E55.9 Additional Codes HAMILTON-7 Assessment Billing - HAMILTON-7 Assessment Tool: HAMILTON-7 Assessment 90229 ([id number]) PHQ-9 - 47959 - PHQ-9 Billing: Yes ([id number]) Assessment & Plan Assessment & Plan (1) Annual physical exam: Code(s): Z00.00 - Encounter for general adult medical examination without abnormal findings Category: Medical Plan: Patient is up to date on all recommended routine screenings and vaccinations for his age. Ordered for updated blood work today and plan to follow up in one year or sooner as needed. (2) Cerebral palsy: Comment: s/p muscle nerve transplant 2009-followed by [facility]-has crutches and whee lchair. As of 04/2021 uses crutches almost exclusively. Code(s): G80.9 - Cerebral palsy, unspecified Category: Medical Plan: Continue to follow with neurology on a yearly basis. No concerns today. He does need new rubber tips for his forearm crutches and order was placed to the pharmacy today. (3) Vitamin D deficiency: Code(s): E55.9 - Vitamin D deficiency, unspecified Category: Medical Plan: The plan is to recheck vitamin D levels with blood work and continue supplementation as needed. Plan During the visit, we discussed the importance of rechecking vitamin D levels and continuing supplementation if necessary. We also reviewed the patient's history of a finger fracture, which has healed completely. I advised the patient to follow up with the neurologist annually and to maintain regular eye examinations. We also discussed the option of obtaining a flu shot and COVID-19 vaccine from the pharmacy. This note was constructed using voice recognition software. While every effort has been made to ensure accuracy and merchandiser retail representative, still areas may have been included sometimes these areas may affect the content or meeting of the given symptoms. Total time spent caring for the patient today was 20 minutes. This includes time spent before the visit reviewing the chart, time spent during the visit, and time spent after the visit and documentation. Patient was informed and verbally consented to the use of an ambient scribe for clinic note docu mentation during this visit. Orders: Orders TSH reflex Free T4 Today G80.9 - Cerebral palsy, unspecified, Z13.29 - Encounter for screening for other suspected endocrine disorder Vitamin D 25-OH Total Today G80.9 - Cerebral palsy, unspecified, Z13.21 - Encounter for screening for nutritional disorder Complete Blood Count Auto Diff Today G80.9 - Cerebral palsy, unspecified, Z00.00 - Encounter for general adult medical examination without abnormal findings Vitamin B12 and Folate Today G80.9 - Cerebral palsy, unspecified, Z13.21 - Encounter for screening for nutritional disorder Comprehensive Met. Panel Today G80.9 - Cerebral palsy, unspecified, Z00.00 - Encounter for general adult medical examination without abnormal findings Referrals Optometry Referral Z00.00 - Encounter for general adult medical examination without abnormal findings Medications: New [rubber tip for cane] As directed 2 ea 0RF G80.9 - Cerebral palsy, unspecified
[2025-08-22 09:02] VITALS: BP 110/66; PULSE 121; TEMP 36.3; O2SAT 96; BMI 23.6
[2025-08-22 09:21] VITALS: PULSE 90
== END 2025-08-22 09:31 | disposition home or self-care (01) ==
LOC: HO.HMCH 08:59
DX: Z00.00 Encounter for general adult medical examination without abnormal findings (principal); G80.9 Cerebral palsy, unspecified; E55.9 Vitamin D deficiency, unspecified

== ENCOUNTER 2025-08-22 08:58 | Outpatient (REF) | payer OTHER, SELFPAY ==
[2025-08-22 09:57] LABS: MANUAL DIFF FLAG NO
--- OUTSIDE RECORDS SUMMARY | 2025-08-22 10:47 | XMS_ITS | Clinical Summary ---
Author Organization [facility] Address [address] [id number] Care Team Providers Care Retail Manager In Training Name Role Phone Sadia Cornell MD Primary Care Provider Unavailab le Allergies No known active allergies Medications No known medications Active Problems Problem Noted Date Diagnosed Date Dependence on wheelchair 08/30/2023 Difficulty walking 03/15/2023 Social History Tobacco Use Types Packs/Day Years Used Date Smoking Tobacco: Never Assessed Sex and Gender Information Value Date Recorded Sex Assigned at Male 09/05/2022 8:19 PM EDT Legal Sex Male 8:19 PM EDT Gender Identity Not on file Sexual Orientation Not on file Last Filed Vital Signs Vital Sign Reading Time Taken Comments Blood Pressure - - Pulse - - Temperature - - Respiratory Rate - - Oxygen Saturation - - Inhaled Oxygen Concentration - - Weight 54 kg (119 lb) 04/05/2024 11:06 AM EDT Height 149.4 cm (4' 10.82 ) 04/05/2024 11:06 AM EDT Body Mass Index 24.18 04/05/2024 11:06 AM EDT Plan of Treatment Not on file Insurance [facility] Care Teams Retail Manager In Training Relationship Specialty Start Date End Date [place]ia Herrera MD [address] [place] [address] PCP - General 02/14/19
[2025-08-22 10:55] LABS: Hematocrit 45.3 % (42.0-52.0); Hemoglobin 14.8 g/dl (14.0-18.0); Imm Gran Abs Auto 0.01 X10*3/uL (0.00-0.03); Imm Gran Pct Auto 0.2 % (0.0-0.4); Lymphocytes Absolute Auto 1.9 X10*3/uL (1.2-4.9); Mean Corpuscular HGB Conc 32.7 g/dl (31.0-36.0); Mean Corpuscular Hemoglobin 26.8 pg (27.0-33.0); Mean Corpuscular Volume 82.1 fL (80.0-98.0); NRBC Abs Auto 0.000 X10*3/uL (0.0-0.012); NRBC Pct Auto 0.0 /100WBC (0.0-0.2); Platelet Count 258 X10*3/uL (160-400); Red Blood Count 5.52 X10*6/uL (4.60-5.80); White Blood Count 5.4 X10*3/uL (4.8-10.8)
[2025-08-22 11:33] LABS: Alanine Aminotransferase 19 U/L (0-40); Albumin Level 5.3 g/dL (3.5-5.0); Alkaline Phosphatase 61 U/L (39-117); Anion Gap 13 (12-20); Aspartate Amino Transferase 20 U/L (5-37); Blood Urea Nitrogen 9 mg/dL (9-16); Calcium 9.3 mg/dL (8.4-10.2); Carbon Dioxide 29 mmol/L (22-29); Chloride 105 mmol/L (96-108); Estimated Glomerular Filt Rate > 60; Potassium 3.8 mmol/L (3.3-5.1); Sodium 143 mmol/L (135-145); Total Protein 7.9 g/dL (6.5-8.0)
[2025-08-22 11:50] LABS: Folate 12.3 ng/mL (> or = 4.0); Vitamin B12 315 pg/mL (200-900)
== END 2025-08-22 08:59 | disposition home or self-care (01) ==
LOC: HO.LAB 08:58
DX: Z13.29 Encounter for screening for other suspected endocrine disorder (principal); Z00.00 Encounter for general adult medical examination without abnormal findings; Z13.21 Encounter for screening for nutritional disorder; G80.9 Cerebral palsy, unspecified; E55.9 Vitamin D deficiency, unspecified
CPT/HCPCS: 36415; 80053; 82306; 82607; 82746; 84443; 85025; 96127; 99395

== ENCOUNTER 2025-10-09 09:38 | Outpatient (AMB) | payer OTHER, SELFPAY ==
--- NOTE | 2025-10-09 10:03 | MHC.OFFVIS ---
Intake Visit Reasons: 1yr follow up Allergies No Known Allergies Allergy (Verified 08/22/25 09:14) HPI Comments Details: 20 years old left-handed man who was born in the [facility]. His mother didn't know that she was until she was about 5 months and a month later he was born. Apparently there was compression of because of placenta previa but he was born her life and then lifted hospital for sometime. He started talking when he was few years old and walked many years later after some leg surgery. Even to regular schools and finished high school. Now he was walking with [place] crutches. There was no history of seizure disorder. He was not taking any medicines at this time. Previously he has been treated for growth hormones. He is presenting for a wellness visit. He reports that his bladder control is stable, without issues. He denies any seizures or pain and states that his memory functions adequately. The patient has completed high school and shows interest in computers, though he has not pursued higher education or employment. During the visit, he expressed curiosity about his blood type, which remains unknown after donating blood some months ago. No additional health issues or complaints were raised. [facility] Medical History Hypothyroidism Cerebral palsy Surgical History History of surgery on lower extremity Family History Father No problems noted. Mother No problems noted. Brother No problems noted. Brother No problems noted. Social History Housing: Other (At home with parents) Patient Tobacco Use Status: Never used Tobacco Tobacco use type: Cigarette e-Cigarette/Vaping Use: Never Used Second Hand Smoke Exposure: No service: No Current occupational status: disabled Current occupation: left hand dominant Current occupational exposures/hazards: No Cognitive needs: No Hearing needs: No Vision needs: Yes Review of Systems Narrative - Genitourinary: Reports no issues with bladder control. - Neurological: Denies seizures; Reports no memory problems. - General: Reports no pain. Physical Exam Neuro Other: Mental Status: Alert and oriented to person, place, and time. Normal attention. Normal spontaneous speech, fluency, and comprehension. No obvious issues with mood and memory. Affect is appropriate. Cranial Nerves: CN II: Visual caputo full to confrontation, visual acuity intact. CN III, IV, : Pupils equal, round, reactive to light and accommodation. Extraocular movements are normal. CN V: Facial sensation is normal. CN VII: Facial movements symmetrical. CN VIII: Hearing intact to bedside conversation is normal. CN IX, X: Palate elevates symmetrically. CN XI: Shoulder shrug and head turn symmetrical. CN XII: Tongue midline without atrophy or fasciculations. Motor: Paraparesis. Coordination: [id number] is okay. Ataxic gait with Danish crutches Extrapyramidal: Full facial expressions and blinking. No rigidity. Movements are appropriate with no tremor or abnormality. Speech: Normal; no dysarthria or tremor. 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 At this time, he was not have any cognitive symptoms. It might be important to know if there was any treatable cause such as hydrocephalus and I have requested a noncontrast MRI of brain. Otherwise treatment is supportive and conservative and he was advised to stay active in life and tried to learn a profession. Orders: Orders MR head/brain wo con Today R26.9 - Unspecified abnormalities of gait and mobility Coding Level of Care Code Est Pt Level 3 (16560) Diagnoses Chronic static encephalopathy G93.49 Gait disorder R26.9
== END 2025-10-09 10:16 | disposition home or self-care (01) ==
LOC: HO.HSM 09:39
PROVIDERS: PCP Internal Medicine; Referring Provider Internal Medicine; Visit Provider Psychiatry & Neurology Neurology
DX: G93.49 Other encephalopathy (principal); R26.9 Unspecified abnormalities of gait and mobility
CPT/HCPCS: 99213

== ENCOUNTER → 2025-10-09 09:38 | Outpatient (BNVA) | payer OTHER, SELFPAY | PROVIDERS: PCP Internal Medicine; Referring Provider Internal Medicine; Visit Provider Psychiatry & Neurology Neurology | DX: G93.49 Other encephalopathy (principal); R26.9 Unspecified abnormalities of gait and mobility | CPT/HCPCS: 99212 ==